=== PATIENT | male | born 1980 | race Caucasian/White ===

== ENCOUNTER 2020-06-21 12:55 | Emergency (ER) | payer BC ==
[2020-06-21 13:03] VITALS: RESP 20
--- NOTE | 2020-06-21 14:10 | XR ---
EXAMINATION TYPE: XR chest 1V DATE OF EXAM: 06/21/2020 COMPARISON: NONE HISTORY: Cough TECHNIQUE: Single view FINDINGS: Heart and mediastinum are normal. Lungs are clear. Diaphragm is normal. There is no heart f ailure. Bony thorax is intact. IMPRESSION: Normal chest.
[2020-06-21] MEDS ORDERED: BAMLANIVIMAB (EUA) 700 MG, ETESEVIMAB (EUA) 1,400 MG in SODIUM CHLORIDE 0.9% 50 ML IVPB ONE (15:15)
[2020-06-21 15:27] VITALS: BP 142/89
[2020-06-21] MEDS ORDERED: ACETAMINOPHEN TAB 325 MG TAB PO STA (15:35)
--- NOTE | 2020-06-21 15:37 | ED ---
General Adult HPI - General Chief complaint: Upper Respiratory Infection Stated complaint: Covid exposure, SOB, back pain Time Seen by Provider: 06/21/20 13:05 Source: patient, RN notes reviewed Mode of arrival: ambulatory Limitations: no limitations - History of Present Illness Initial comments: 39-year-old male presents emergency Department chief complaint of cough and cold like symptoms. Patient states she's been sick for last couple days. Patient states that he did have recent cold exposure in which she states they are here last night. Patient states that they tested positive. Patient states that he has a cough did have some gurgling sound but states he has no chest pain or shortness breath patient denies any recent medications for his fever. He states he is achy had toes and having chills. - Related Data Allergies Allergy/AdvReac Type Severity Reaction Status Date / Time bee venom protein (honey bee) Allergy Unknown Verified 06/21/20 12:59 Review of Systems ROS Statement: Those systems with pertinent positive or pertinent negative responses have been documented in the HPI. ROS Other: All systems not noted in ROS Statement are negative. Past Medical History Past Medical History: No Reported History History of Any Multi-Drug Resistant Organisms: None Reported Past Surgical History: No Surgical Hx Reported Past Psychological History: No Psychological Hx Reported Smoking Status: Never smoker Past Alcohol Use History: Occasional Past Drug Use History: None Reported General Exam Limitations: no limitations General appearance: alert, in no apparent distress Head exam: Present: atraumatic, normocephalic, normal inspection Eye exam: Present: normal appearance, PERRL, EOMI. Absent: scleral icterus, conjunctival injection, periorbital swelling ENT exam: Present: normal exam, normal oropharynx, mucous membranes moist, TM's normal bilaterally Neck exam: Present: normal inspection, full ROM. Absent: tenderness, meningismus, lymphadenopathy Respiratory exam: Present: normal lung sounds bilaterally. Absent: respiratory distress, wheezes, rales, rhonchi, stridor Cardiovascular Exam: Present: normal rhythm, tachycardia, normal heart sounds. Absent: systolic murmur, diastolic murmur, rubs, gallop, clicks GI/Abdominal exam: Present: soft, normal bowel sounds. Absent: distended, tenderness, guarding, rebound, rigid Neurological exam: Present: alert, oriented X3 Skin exam: Present: warm, dry, intact, normal color. Absent: rash Course Vital Signs 06/21/20 06/21/20 13:00 15:26 Temperature 100.2 F H 98.9 F Pulse Rate 117 H 89 Respiratory 20 20 Rate Blood Pressure 133/85 142/89 O2 Sat by Pulse 97 98 Oximetry Medical Decision Making - Medical Decision Making Patient x-rays unremarkable patient has positive for Covid 19 patient was given monoclonal antibodies and will be discharged in stable condition. - Lab Data Lab Results 06/21/20 Range/Units 13:31 Coronavirus (PCR) Detected A (Not Detectd) Disposition Clinical Impression: COVID-19 Disposition: HOME SELF-CARE Condition: Stable Instructions (If sedation given, give patient instructions): Coronavirus Disease 2019 (COVID-19) Additional Instructions: Please return to the Emergency Department if symptoms worsen or any other concerns. Is patient prescribed a controlled substance at d/c from ED?: No Referrals: Azam Marie MD [Primary Care Provider] - 1-2 days Time of Disposition: 15:37
[2020-06-21 17:24] VITALS: PULSE 98; TEMP 98.3
== END 2020-06-21 17:24 | disposition home or self-care (01) ==
LOC: EC 12:55
DX: U07.1 COVID-19 (principal); Z91.030 Bee allergy status
CPT/HCPCS: 87635; 71045; 99283; 96365; Q0245

== ENCOUNTER → 2023-12-21 | Outpatient (CLI) | payer BC ==
[2023-12-21 16:24] VITALS: BP 143/91; PULSE 82; RESP 16; TEMP 98
--- NOTE | 2023-12-21 17:04 | P.SLEEP ---
History of Present Illness DATE: 12/21/2023 CONSULTATION/NEW PATIENT EVALUATION HISTORY OF PRESENT ILLNESS/SLEEP-WAKE EVALUATION: 43-year-old gentleman had b een evaluated in the sleep center for possible obstructive sleep apnea hypopnea syndrome. SLEEP SCHEDULE: Usually sleep schedule from 8 PM to 1 AM on weekdays and from 10 PM to 4 AM on weekend. FALLING ASLEEP: No problems with falling asleep. DURING SLEEP: Patient has loud snoring and witnessed episodes of stop breathing during the sleep by his . Patient wakes up from sleep every hour. Positive history of grinding teeth. No history of hypnogogical hallucinations, sleep paralysis, or cataplexy. DURING THE DAY/WAKE STATE: Patient has difficulties to pay attention, has problems with memory, concentration, irritability, depression. [place] sleepiness scale is significantly increased to 14. Patient takes 2 naps at noon and at 6 PM. PAST MEDICAL HISTORY: Hypertension, acid reflux. PAST SURGICAL HISTORY: Adenoidectomy. MEDICATIONS: Please see below. SOCIAL HISTORY: Please see below. FAMILY HISTORY: Hypertension, heart problems, headaches, sleep apnea, mental illness. REVIEW OF SYSTEMS: Snoring, multiple awakenings from sleep, sleepiness during the day. No fevers. No double vision. No recent chest pain. No shortness of breath. No abdominal pain. No bleeding episodes. No blood in urine. No seizure episodes. PHYSICAL EXAMINATION: GENERAL: A pleasant patient without any distress. VITAL SIGNS: Please see below, weight 296 pounds, BMI 42.4. HEENT: PERRLA, EOMI. Evaluation of oropharynx showed tongue protrudes midline, low position of soft palate Mallampati 4. NECK: Supple. No JVD. Thyroid is not palpable. 19 inches in circumference. LUNGS: Clear to percussion and to auscultation. Good air exchange. No wheezing or rhonchi. HEART: S1, S2 regular. No murmurs, gallops or rubs. ABDOMEN: Soft and nontender. Bowel sounds are present. No organomegaly apprec iated. EXTREMITIES: No clubbing or cyanosis. TELEGRAPH MECHANIC: Awake, alert, and oriented x3. Cranial nerves 2 to 7 intact. There is no fasciculation or atrophy noted. No focal deficits observed. ASSESSMENT: 1. Loud snoring, witnessed episodes of stop breathing during the sleep, extremely low position of soft palate Mallampati 4, wide neck 19 inches in circumference, sleepiness with [place] Sleepiness Scale 14. Obstructive sleep apnea hypopnea syndrome. 2. Obesity, BMI 42.4. 3. Hypertension. 4. Acid reflux. 5. Status post adenoidectomy. 6. car pick up driver PLAN: 1. Home sleep apnea test for evaluation of patient's breathing during sleep. 2. Following plan after reading sleep study. 3. Preferable position during sleep on the side. 4. No driving if patient feels any sleepiness. Patient is aware of civil and criminal liability for unsafe driving. 5. Sleep hygiene with regular sleep time for at least 7.5-8 hours. 6. Watching and losing weight. Thank you very much for referring this patient for consultation. Sincerely, Yonathan Johnston MD, PhD, FAASM. Diplomat of [place] [employer], Sleep Medicine Board by [place] [employer] [place] [employer] Sheetmetal Trades Worker of [facility] [place] Azam Marie MD Past Medical History Past Medical History: GERD/Reflux, Hypertension History of Any Multi-Drug Resistant Organisms: None Reported Past Surgical History: Adenoidectomy Additional Past Surgical History / Comment(s): mole removed from top of head Past Anesthesia/Blood Transfusion Reactions: No Reported Reaction Past Psychological History: No Psychological Hx Reported Smoking Status: Former smoker Past Alcohol Use History: Occasional Past Drug Use History: None Reported - Past Family History Father Family Medical History: Hyperlipidemia, Hypertension, Osteoarthritis (OA), Sleep Apnea/CPAP/BIPAP Additional Family Medical History / Comment(s): snoring, headaches, mental illness Mother Family Medical History: Asthma, Coronary Artery Disease (CAD), Fibromyalgia, GERD/Reflux, Osteoarthritis (OA) Additional Family Medical History / Comment(s): mental illness, Medications and Allergies Home Medications Medication Instructions Recorded Confirmed Type Olmesartan Medoxomil 5 mg PO DAILY 12/21/23 12/21/23 History Allergies Allergy/AdvReac Type Severity Reaction Status Date / Time bee venom protein (honey bee) Allergy Unknown Verified 06/21/20 12:59 Physical Exam Vitals: Vital Signs Temp Pulse Resp BP Pulse Ox 12/21/23 16:23 98 F 82 16 143/91 97 Intake and Output 12/21/23 12/21/23 12/21/23 06:59 14:59 22:59 Other: Weight 134.263 kg Sleep Note - Sleep Data ESS Total: 14 - Sleep Note Sleep Note: Temperature: 98 F Pulse Rate: 82 Respiratory Rate: 16 Blood Pressure: 143/91 SpO2: 97 Height: 5 ft 10 in Weight: 134.263 kg BMI: Neck Circumference: 19
== END ==
LOC: 3 N SLEEP 16:01
PROVIDERS: ATTEND Internal Medicine
DX: G47.33 Obstructive sleep apnea (adult) (pediatric) (principal); E66.9 Obesity, unspecified; I10 Essential (primary) hypertension; K21.9 Gastro-esophageal reflux disease without esophagitis; Z98.890 Other specified postprocedural states; Z90.89 Acquired absence of other organs; Z68.41 Body mass index [BMI] 40.0-44.9, adult; Z91.030 Bee allergy status; Z87.891 Personal history of nicotine dependence; Z79.899 Other long term (current) drug therapy
CPT/HCPCS: 99211

== ENCOUNTER → 2024-01-04 | Outpatient (CLI) | payer BC ==
--- NOTE | 2024-01-11 18:56 | P.PCN ---
Description of Procedure: CLINICAL: A home sleep apnea test has been done for confirmation of possible obstructive sleep apnea-hypopnea syndrome. DESCRIPTION OF PROCEDURE: RESULTS: Recording time was 6 hours 28 minutes. Evaluation time was 6 hours 17 minutes. Evaluation time is sufficient for making conclusion about results of the test. Raw data of sleep recording has been reviewed and is adequate. Respiratory channel showed 1 apneas and 111 hypopneas. Apnea-hypopnea index was 17.8 per hour. Pulse rate in the range between minimum 54, maximum 106, average 73 by computer calculation. Lowest desaturation was 79%. IMPRESSION: 1. Moderate obstructive Sleep Apnea Hypopnea Syndrome. Please see other impressions from consultation. PLAN: 1. The patient will be started on auto-PAP treatment. . 2. I will see patient for follow up visit to discuss results of the test, evaluate clinical response on treatment with PAP therapy and make any necessary adjustments related to mask fitting, pressure, and humidification. 3. Watching and losing weight. 4. Sleep hygiene with regular time in bed for at least 8 hours. 5. No driving if feeling any sleepiness. Thank you very much for allowing me to participate in the management of your patient. Sincerely, Yonathan Johnston MD, PhD, FAASM Diplomat of [place] [employer] Sleep Medicine Board of [place] [employer] Spectrograph Operator of [facility] [place] cc: Azam Marie MD
== END ==
LOC: 3 N SLEEP 16:37
PROVIDERS: ATTEND Internal Medicine
DX: G47.33 Obstructive sleep apnea (adult) (pediatric) (principal); Z91.030 Bee allergy status

== ENCOUNTER → 2024-05-15 | Outpatient (CLI) | payer BC ==
[2024-05-15 14:33] VITALS: BP 159/79; PULSE 87; RESP 16; TEMP 97.4
--- NOTE | 2024-05-15 14:56 | P.PROGSL ---
Subjective DATE: 05/15/2024 FOLLOW UP VISIT. Patient with obstructive sleep apnea hypopnea syndrome return to sleep center for follow-up visit. Recently patient had sleep study which documented obstructive sleep apnea hypopnea syndrome. Patient was initiated on PAP therapy and today is first visit after treatment was started. Patient was able to use PAP equipment every night for the whole night. The patient does not have significant problems with the mask, PAP pressure and humidification. [place] sleepiness scale is 8, which is normal. I checked information from PAP unit. PAP unit pressure 5-14, average 9.4 cm H2O. Usage is 90% and 83% for more then 4 hours, average 5 hours per night. Leak is 18.4 l/m, which is in acceptable range. Apnea Hypopnea Index is 1.1, which is normal. MEDICATIONS: Please see below During physical exam: GENERAL: A pleasant patient without any distress. VITAL SIGNS: Have been reviewed, please see below, weight 300.8 pounds. HEENT: PERRLA, EOMI.low position of soft palate, Mallapati 4 . NECK: Supple. No JVD. LUNGS: Clear to percussion and to auscultation. Good air exchange. No wheezing or rhonchi. HEART: S1, S2 regular. ABDOMEN: Soft and nontender. Obese EXTREMITIES: No clubbing or cyanosis. TALENT ACQUISITION SPECIALIST: Awake, alert, and oriented x3. No focal deficit. Impressions: 1. Obstructive sleep apnea-hypopnea syndrome. Patient demonstrated great compliance with treatment, benefiting from treatment. 2. Obesity. 3. Hypertension. 4. Acid reflux. 5. Status post adenoidectomy. 6. truck driver salesperson. Plan: 1. Continue using PAP equipment every night for the whole night. 2. To change air filter at least 1-2 times per month. 3. PAP unit should stay lower then position of the head. 4. Advised patient to remove all remaining water from humidifier canister daily and make it dry after each usage. Refill canister with fresh distilled water before each usage. 5. Sleep hygiene with regular time in bed for at least 8 hours. 6. Precautions related to driving. No driving if feel any sleepiness. 7. I will maintain prescription for PAP supplies including mask, tube, filters. 8. Follow up visit in 8 months or earlier if patient has any problems. 9. Watching and losing weight. Thank you very much for allowing me to participate in the management of your patient. Yonathan Johnston MD, PhD, FAASM. Diplomat of [place] [employer], Sleep Medicine Board by [place] [employer] Community Youth Secretary of [facility] [place] Objective - Vital Signs Vital Signs: Vital Signs Temp 97.4 F L 05/15/24 14:31 Pulse 87 05/15/24 14:31 Resp 16 05/15/24 14:31 BP 159/79 05/15/24 14:31 Pulse Ox 98 05/15/24 14:31 FiO2 Home Medications: Home Medications Medication Instructions Recorded Confirmed Type Olmesartan Medoxomil 5 mg PO DAILY 12/21/23 12/21/23 History
== END ==
LOC: 3 N SLEEP 14:09
PROVIDERS: ATTEND Internal Medicine
DX: G47.33 Obstructive sleep apnea (adult) (pediatric) (principal); E66.9 Obesity, unspecified; I10 Essential (primary) hypertension; K21.9 Gastro-esophageal reflux disease without esophagitis; Z90.89 Acquired absence of other organs; Z91.030 Bee allergy status
CPT/HCPCS: 99212